=== PATIENT | male | born 1995 | race Caucasian/White ===

== ENCOUNTER 2020-04-21 18:09 | Emergency (ER) | payer SELFPAY ==
[2020-04-21] MEDS ORDERED: NORMAL SALINE 1000 ML 1,000 ML IV ONE (19:47)
[2020-04-21] MEDS ORDERED: ACETAMINOPHEN 325 MG TABLET PO ONE (19:48)
--- NOTE | 2020-04-21 20:00 | ER Document Report ---
ED Headache - General Chief Complaint: Headache Stated Complaint: HEADACHE,CHILLS,FEVER Time Seen by Provider: 04/21/20 19:34 Notes: CHIEF COMPLAINT: Fever and headache for 3 days HPI: 25-year-old male presenting for evaluation of generalized headache and fever with body ache and chills over the last 3 days. Denies sore throat. Denies posterior neck pain. Denies cough. Denies abdominal pain nausea vomiting dysuria. Denies painful swallowing. Patient's biggest concern is the generalized body ache he has been having ROS: See HPI - all other systems were reviewed and are otherwise negative Constitutional: + fever Eyes: no drainage, no blurred vision ENT: no runny nose, no sore throat Cardiovascular: no chest pain Resp: no SOB, no cough GI: no vomiting, no diarrhea, no abdominal pain : no dysuria Integumentary: no rash Allergy: no hives Musculoskeletal: no extremity pain or swelling Neurological: no numbness/tingling, no weakness, positive headache MEDICATIONS: I agree with the patient medications as charted by the RN. ALLERGIES: I agree with the allergies as charted by the RN. PAST MEDICAL HISTORY/PAST SURGICAL HISTORY: Reviewed and agree as charted by RN. SOCIAL HISTORY: Reviewed and agree as charted by RN. FAMILY HISTORY: No significant familial comorbid conditions directly related to patient complaint EXAM: Reviewed vital signs as charted by RN. CONSTITUTIONAL: Alert and oriented and responds appropriately to questions. Well-appearing; well-nourished HEAD: Normocephalic; atraumatic EYES: PERRL; Conjunctivae clear, sclerae non-icteric ENT: normal nose; no rhinorrhea; moist mucous membranes; pharynx without lesions noted, no uvula edema or deviation, no tonsillar hypertrophy, phonation normal NECK: Supple without meningismus; non-tender; no cervical lymphadenopathy, no masses. Patient is able to fully rotate the head left and right as well as flex and extend the head and neck without significant change in the headache or onset of neck discomfort CARD: RRR; no murmurs, no clicks, no rubs, no gallops; symmetric distal pulses RESP: Normal chest excursion without splinting or tachypnea; breath sounds clear and equal bilaterally; no wheezes, no rhonchi, no rales, pulse oximetry 99% on room air not hypoxic ABD/GI: Normal bowel sounds; non-distended; soft, non-tender, no rebound, no guarding; no palpable organomegaly or masses. BACK: The back appears normal and is non-tender to palpation, there is no CVA tenderness EXT: Normal ROM in all joints; non-tender to palpation; no cyanosis, no effusions, no edema SKIN: Normal color for age and race; warm; dry; good turgor; no acute lesions noted NEURO: Moves all extremities equally; Motor and sensory function intact PSYCH: The patient's mood and manner are appropriate. Grooming and personal hygiene are appropriate. MDM: 25-year-old male presenting with headache and fever with chills over the last 3 days. Does not have any definitive focal findings other than the headache. Has no specific nuchal rigidity on exam. Will obtain strep and flu as well as baseline screening labs. Will hydrate patient treat fever. Will reassess patient. Patient has had significant body ache over the last 3 days and this is his primary complaint. States that the headaches do improve with treatment but he is still had the fevers. - Related Data Allergies/Adverse Reactions: No Known Allergies Allergy (Verified 04/21/20 19:19) Past Medical History - Social History Smoking Status: Current Every Day Smoker Frequency of alcohol use: Social Drug Abuse: Marijuana Family History: Reviewed & Not Pertinent Physical Exam - Vital signs Vitals: Temp Pulse Resp BP Pulse Ox 101.6 F H 103 H 14 137/82 H 97 04/21/20 19:18 04/21/20 19:18 04/21/20 19:18 04/21/20 19:18 04/21/20 19:18 Course - Re-evaluation Re-evalutation: 04/21/20 20:31 Case discussed with attending Dr. Winters. Patient's rapid strep and influenza are negative. Patient has a low WBC count which would indicate more of a viral etiology similar to what we have been seeing with our COVID positive patients. Patient's primary concern is the body ache and not specifically the headache, I spoke with him at length about this. We discussed pros and cons as well as risks and benefits of lumbar puncture. Patient would prefer to have a lumbar puncture done at this time to rule out meningitis. 04/21/20 22:00 With a sterile field set up and consent obtained the lumbar puncture was attempted twice initially with a 20-gauge catheter then with a 22-gauge catheter without obtaining entrance into the spinal canal for specimens. Patient merritt erated well. I spoke with Dr. Winters attending who will attempt the lumbar puncture and discussed this with the patient who is in agreement. 04/21/20 22:[address] Winters, she has successfully performed the lumbar puncture specimens will be sent to lab 04/22/20 00:29 Patient CSF testing does not show evidence of meningitis. He has cultures pending. Patient feels slightly better at this time we will have nursing recheck vital signs notify me of any abnormalities. Will be discharged home at this time as a person under investigation for COVID-19. Patient will self quarantine at home until results - Vital Signs Vital signs: Temp Pulse Resp BP Pulse Ox 101.6 F H 103 H 14 137/82 H 97 04/21/20 19:18 04/21/20 19:18 04/21/20 19:18 04/21/20 19:18 04/21/20 19:18 - Laboratory Result Diagrams: 04/21/20 20:06 04/21/20 20:06 Laboratory results interpreted by me: 04/21/20 04/21/20 04/21/20 20:06 20:06 20:23 WBC 3.3 L Sodium 132.2 L Urine Blood SMALL H Discharge - Discharge Clinical Impression: Fever in adult, Person under investigation for COVID-19 Headache Qualifiers: Headache type: unspecified Headache chronicity pattern: acute headache Intractability: intractable Qualified Code(s): R51 - Headache Condition: Stable Disposition: HOME, SELF-CARE Instructions: COVID-19 Guidance for Persons Under Investigation Additional Instructions: You are considered a person under investigation for COVID-19 at this time. Self quarantine at home for the next 2 to 5 days pending your test results which usually take 2 to 5 days. Someone from the hospital should contact you about your results. Continue to medicate fevers at home with Motrin and Tylenol. Hydrate well at home. Return for worsening symptoms. The results from your lumbar puncture today did not show evidence of meningitis Forms: Return to Work
[2020-04-21 20:14] LABS: A TYPE INFLUENZA AG NEGATIVE (NEGATIVE); B INFLUENZA AG NEGATIVE (NEGATIVE)
[2020-04-21 20:16] LABS: ABSOLUTE LYMPHOCYTES (AUTO) 0.5 10^3/uL (0.5-4.7); ABSOLUTE MONOCYTES (AUTO) 0.3 10^3/uL (0.1-1.4); ABSOLUTE NEUT (AUTO) 2.5 10^3/uL (1.7-8.2); BASOPHILS % (AUTO) 0.3 % (0-2); HEMATOCRIT 43.9 % (37.9-51.0); HEMOGLOBIN 15.6 g/dL (13.5-17.0); LYMPHOCYTES % (AUTO) 14.4 % (13-45); MEAN CORPUSCULAR HEMOGLOBIN 30.4 pg (27.0-33.4); MEAN CORPUSCULAR HGB CONC 35.7 g/dL (32.0-36.0); MEAN CORPUSCULAR VOLUME 85 fl (80-97); MONOCYTES % (AUTO) 9.1 % (3-13); PLATELET COUNT 169 10^3/uL (150-450); RED BLOOD COUNT 5.15 10^6/uL (4.35-5.55); RED CELL DISTRIBUTION WIDTH 12.9 % (11.5-14.0); SEGMENTED NEUTROPHILS % (AUTO) 76.2 % (42-78); TOTAL CELLS COUNTED % (AUTO) 100 %; WHITE BLOOD COUNT 3.3 10^3/uL (4.0-10.5)
[2020-04-21] MEDS ORDERED: LIDOCAINE 1% INJ-PF (10 MG/ML) 30 ML SDV INJ ONE (20:37)
[2020-04-21 20:44] LABS: ALBUMIN 4.5 g/dL (3.5-5.0); ALKALINE PHOSPHATASE 57 U/L (38-126); ANION GAP 5 (5-19); ASPARTATE AMINO TRANSFERASE 43 U/L (17-59); BILIRUBIN,DIRECT 0.3 mg/dL (0.0-0.4); BILIRUBIN,TOTAL 0.7 mg/dL (0.2-1.3); BLOOD UREA NITROGEN 14 mg/dL (7-20); CALCIUM 9.7 mg/dL (8.4-10.2); CARBON DIOXIDE 27 mmol/L (22-30); CHLORIDE 100 mmol/L (98-107); GLUCOSE 92 mg/dL (75-110); POTASSIUM 4.7 mmol/L (3.6-5.0)
[2020-04-21] MEDS ORDERED: MORPHINE SULFATE 10 MG/ML INJ IV ONE (20:51)
[2020-04-21 20:57] LABS: APPEARANCE,URINE CLEAR; BILIRUBIN,URINE NEGATIVE (NEGATIVE); COLOR,URINE YELLOW; GLUCOSE, URINE NEGATIVE (NEGATIVE); KETONES,URINE NEGATIVE (NEGATIVE); LEUKOCYTE ESTERASE,URINE NEGATIVE (NEGATIVE); NITRITE,URINE NEGATIVE (NEGATIVE); PROTEIN,URINE NEGATIVE (NEGATIVE); URINE SPECIFIC GRAVITY 1.016; UROBILINOGEN,URINE NEGATIVE mg/dL (<2.0)
--- NOTE | 2020-04-21 22:42 | ER Document Report ---
Doctor's Note Notes: 04/21/20 22:41 Lumbar puncture performed by myself without complication and 10:35 PM today. Indication was rule out meningitis,. Patient previously consented by ANNA Morgan, obtained clear spinal fluid approximately 7 mLs on first attempt at L4-L5 dural space without complication.
[2020-04-21] MEDS ORDERED: CEFTRIAXONE 2 GM/D5W RTU 2 GM/50 ML RTUPB IV SCH (23:00)
[2020-04-21 23:51] LABS: GLUCOSE,CSF 68 mg/dL (40-70); PROTEIN,CSF 18 mg/dL (12-60)
[2020-04-21 23:55] LABS: RED BLOOD CELL,CSF 305 /uL (0-10)
[2020-04-21 23:56] LABS: CSF TUBE NUMBER 1; WHITE BLOOD CELL,CSF 1 /uL (0-5)
[2020-04-21 23:57] LABS: APPEARANCE ALL TUBES CLEAR; COLOR ALL TUBES COLORLESS
[2020-04-21 23:58] LABS: APPEARANCE ALL TUBES CLEAR; COLOR ALL TUBES COLORLESS; CSF TOTAL VOLUME 4.9 CC; CSF TUBE NUMBER 4; VOLUME TUBE 1 1.2 CC; VOLUME TUBE 2 1.2 CC; VOLUME TUBE 3 1.6 CC; VOLUME TUBE 4 0.9 CC
[2020-04-22 00:10] LABS: RED BLOOD CELL,CSF 240 /uL (0-10); WHITE BLOOD CELL,CSF 0 /uL (0-5)
[2020-04-22 00:13] LABS: CSF TOTAL VOLUME 4.9 CC; VOLUME TUBE 4 0.9 CC
[2020-04-22 00:56] VITALS: BP 127/68
== END 2020-04-22 00:56 | disposition home or self-care (01) ==
LOC: ER 18:09
DX: R51 Headache (principal); R50.9 Fever, unspecified; M79.10 Myalgia, unspecified site; Z20.828 Contact with and (suspected) exposure to other viral communicable diseases; F17.200 Nicotine dependence, unspecified, uncomplicated
CPT/HCPCS: 99285; 96361; 96375; 96365; 36415; 87040; 87070 ×2; 87205; 87880; 85025; 89050; 82945; 84157; 87635; 80053; 81001; 87804; 62270; J3490; J2270; J7030; J0696; C9803